=== PATIENT | male | born 1995 | race Hispanic/Latino ===

== ENCOUNTER 2018-07-25 06:07 | Emergency (ER) | payer BC, OTHER ==
[2018-07-25] MEDS ORDERED: Ketorolac Tromethamine 60 MG/2 ML VIAL ONE (06:26)
[2018-07-25 06:46] LABS: MONO NEGATIVE CONTROL ZONE White (Negative) (White); MONO POSITIVE CONTROL Pink Line (Positive) (PINK/RED); Mononucleosis NEGATIVE (NEGATIVE)
== END 2018-07-25 06:57 | disposition home or self-care (01) ==
LOC: SCSER 06:07
DX: J02.9 Acute pharyngitis, unspecified (principal); F32.9 Major depressive disorder, single episode, unspecified
CPT/HCPCS: 86308; 87081; 87430; 96372; J1885

== ENCOUNTER 2019-11-07 11:42 | Emergency (ER) | payer OTHER, SELFPAY ==
[2019-11-07] MEDS ORDERED: Lidocaine 1% (PF) 30 ML VIAL ONE (12:33)
== END 2019-11-07 13:08 | disposition home or self-care (01) ==
LOC: ERS 11:42
DX: L02.01 Cutaneous abscess of face (principal); J45.909 Unspecified asthma, uncomplicated; F32.9 Major depressive disorder, single episode, unspecified
CPT/HCPCS: 10160; J2001

== ENCOUNTER 2023-03-21 12:19 | Emergency (ER) | payer SELFPAY | END 2023-03-21 12:49 | disposition home or self-care (01) | LOC: ERS 12:19 | DX: Z00.00 Encounter for general adult medical examination without abnormal findings (principal) | CPT/HCPCS: 99282 ==